=== PATIENT | male | born 1960 | race African-American/Black ===

== ENCOUNTER 2019-08-01 11:09 | Day surgery (SDC) | payer OTHER ==
[2019-07-31 16:12] VITALS: BMI 30.7
[~2019-08-01 11:09] MED LIST: ceFAZolin SODIUM 1 GM VIAL IVPB ONE
--- NOTE | 2019-08-01 11:57 | HP ---
History & Physical Update - History History: No Change - Physical Physical: No Change - Assessment Assessment: No Change - Plan Plan: No Change
--- NOTE | 2019-08-01 11:59 | OP ---
Operative Note - Note: Operative Date: 08/01/19 Pre-Operative Diagnosis: prostate cancer Operation: prostate cryoablation and cystoscopy Post-Operative Diagnosis: Same as Pre-op Surgeon: Quentin Grimm Anesthesiologist/PASTRY BAKER: Dylan Brady Anesthesia: General Estimated Blood Loss (mls): 0 Drains & Tubes with Location: 18 fr adam Operative Report Dictated: Yes
[2019-08-01] MEDS ORDERED: MIDAZOLAM HCL 2 MG/2 ML SINGLE DOSE VIAL ONE (12:47)
[2019-08-01] MEDS ORDERED: PROPOFOL 20 ML ONE (12:47)
[2019-08-01] MEDS ORDERED: ONDANSETRON 4 MG/2 ML VIAL IVPUSH PRN (13:04)
[2019-08-01] MEDS ORDERED: PROMETHAZINE HCL 25 MG/1 ML VIAL IVPB PRN (13:04)
[2019-08-01] MEDS ORDERED: oxyCODONE HCL 5 MG TABLET PO PRN (13:04)
[2019-08-01] MEDS ORDERED: ceFAZolin SODIUM 1 GM VIAL IVPB ONE (14:23)
[2019-08-01] MEDS ORDERED: DEXAMETHASONE SOD PHOSPHATE 4 MG/1 ML VIAL ONE (14:28)
[2019-08-01] MEDS ORDERED: ceFAZolin SODIUM 1 GM VIAL ONE (14:28)
[2019-08-01] MEDS ORDERED: KETOROLAC TROMETHAMINE 30 MG/1 ML VIAL ONE (14:28)
[2019-08-01] MEDS ORDERED: BACITRACIN 15 GM TUBE TOPICAL OINTMENT ONE (14:53)
--- NOTE | 2019-08-01 15:36 | OP ---
DATE OF OPERATION: 08/01/2019 PREOPERATIVE DIAGNOSIS: Prostate cancer. POSTOPERATIVE DIAGNOSIS: Prostate cancer. PROCEDURE: Prostate cryoablation and cystoscopy. SURGEON: Quentin Grimm MD SPEECH LANGUAGE PATHOLOGIST ASSISTANT: None. ANESTHESIA: General via laryngeal mask. ANESTHESIOLOGIST: Dylan Brady MD SPECIMENS: None. CULTURES: None. DRAINS: An 18-Icelandic Noe catheter. ESTIMATED BLOOD LOSS: None. COMPLICATIONS: None. DESCRIPTION OF PROCEDURE: Patient was brought into the operating room. Placed on the operating room table in supine position. After administration of general anesthesia via laryngeal mask, intravenous antibiotics were administered. Sequential compression devices were placed. Perineum was shaved, and the genitals and perineum were prepped and draped in usual sterile manner. An 18-Icelandic Noe catheter was placed per urethra into the bladder, 10 mL placed in the balloon. Urine was evacuated, and the bladder was filled with 400 mL with sterile normal saline and clamped. An [place] drape was placed elevating the scrotum. Transrectal ultrasound probe was placed within the rectum. Transrectal ultrasound of the prostate was done. A plan was devised for whole gland prostate cryoablation using 6 probes. Now the 6 probes were placed in their appropriate locations, and the 2 temperature sensors were placed, 1 in external sphincter and 1 in [place] fascia. Now the Noe catheter was removed, and a flexible cystoscopy was performed. This demonstrated normal anterior urethra. The prostatic urethra measured approximately 4-1/2 cm in length. Demonstrated moderate bilobar occlusion. No probes penetrated the prostatic urethra. The bladder was entered and thoroughly inspected. There were no foreign bodies, tumors, stones, inflammation. Both ureteral orifices were in their usual location with clear efflux bilaterally. None of the ablation probes penetrated the bladder, and scope was retroflexed upon the bladder neck, and no probes were seen. Now Super Stiff guidewire was passed through the cystoscope, and the cystoscope was removed. Urethral warmer was passed over the Super Stiff guidewire into the bladder. The guidewire was removed. Urethral warming was started. The probe's positions were reconfirmed and then 2 freeze/thaw cycles were done. At the end of the procedure, all cryoablation probes were removed. Temperature sensors were removed. The urethral warmer was left in place additional 5 minutes. Digital pressure on the perineum achieved hemostasis. The wound was sterilely dressed with bacitracin, 4 x 4, and Tegaderm, 18-Icelandic Noe catheter was replaced. Tolerated the procedure well. Transferred to recovery in stable condition. Corey [id number]
[2019-08-01 17:56] VITALS: TEMP 97.5
[2019-08-01 18:52] VITALS: BP 121/76; PULSE 60
== END 2019-08-01 18:40 | disposition home or self-care (01) ==
LOC: JOR 11:09 → JASU-SURG 11:09
PROVIDERS: ATTEND Urology
PROC: 0V503ZZ Destruction of Prostate, Percutaneous Approach (ICD-10-PCS; principal; 2019-08-01 13:30)
DX: C61 Malignant neoplasm of prostate (principal)
CPT/HCPCS: 55873; C2618; 94760